=== PATIENT | male | born 1970 | race Caucasian/White ===

== ENCOUNTER 2016-09-29 15:30 | Observation (INO) | payer SELFPAY ==
[~2016-09-29] VITALS: Ht 177.8 cm; Wt 84.2 kg
--- NOTE | ~2016-09-29 | HP ---
PATIENT'S NAME: REYES MOSQUEDA [facility] AGE: 46 Y [address] ROOM: [place] [address] LOCATION: GICU ADMIT DATE: 09/29/2016 History & Physical DISCHARGE DATE: FAMILY PHYSICIAN: PHYSICIAN, UNKNOWN ATTENDING PHYSICIAN: SABA FLORENTINO DATE OF SERVICE: 09/29/2016 CHIEF COMPLAINT: Status post fall, traumatic brain injury, low back pain, left leg pain, and weakness. HISTORY OF PRESENT ILLNESS: The patient is a 46-year-old male patient, who had a fall earlier today, was diagnosed at [facility] to have a small right frontal traumatic subarachnoid hemorrhage. The patient has been complaining of low back pain and left leg pain and weakness for a few weeks. He was recently admitted to the hospital in [place] for treatment of low back pain. The patient had loss of consciousness after the fall today. He was seen at [place] [facility], where he was stabilized. He was complaining of headache and nausea as well as low back pain. I was contacted and reviewed the images. I recommended transferring the patient over for further investigations and observation. I met the patient on the Neuro Trauma Unit. He confirmed the history. He had no re-collection of the fall. He was complaining of left frontal/temporal headache. He denied visual disturbances. He reported weakness on his left foot as well as low back pain and left leg pain. He denied changes in his bladder and bowel function. He indicated that his daily activities and functioning are limited due to pain. He denied weight loss, fever, chills, and weakness on his hands. He also reported neck pain. PAST MEDICAL AND SURGICAL HISTORY: History of knee scopes, hypercholesterolemia. MEDICATIONS: Listed in the patient's chart. ALLERGIES: LISTED IN THE PATIENT'S CHART. REVIEW OF SYSTEMS: All points of review of systems were asked about. Pertinent positives were mentioned in the HPI. PATIENT'S NAME: REYES MOSQUEDA [facility] AGE: 46 Y [address] ROOM: [id number] [place] [address] LOCATION: GICU ADMIT DATE: 09/29/2016 History & Physical DISCHARGE DATE: FAMILY PHYSICIAN: PHYSICIAN, UNKNOWN ATTENDING PHYSICIAN: SABA FLORENTINO FAMILY HISTORY: Noncontributory to the patient's presentation. His sister has schizophrenia. SOCIAL HISTORY: Denies smoking and reported social alcohol drinking. PHYSICAL EXAMINATION: GENERAL: The patient was cooperative and pleasant. He was in discomfort due to pain. VITAL SIGNS: Systolic blood pressure was less than 150. HEENT: Head is atraumatic. Sclerae examination was normal. No obvious signs of external head trauma. Pupils were 3 mm and reactive. NECK: No tenderness to palpation. Neck range of motion was painless. No palpable masses. LYMPHATIC: No cervical lymphadenopathy. MOUTH AND THROAT: No mucosal lesions. RESPIRATORY: He was not in any respiratory distress. CARDIOVASCULAR: He has strong pulses on the upper and lower extremities. MUSCULOSKELETAL: He had painful range of motion in the left lower extremity. GAIT: He was mobilizing using a walker. He was in discomfort. He was able to do the toe and heel walking after encouragement. BACK: No obvious deformity. NEUROLOGIC: He was alert and oriented. Cranial nerves examination was grossly normal. Pupils were 3 mm and reactive. No evidence of pronator drift. Motor examination on the lower extremities was limited due to pain, but after encouragement, he was able to fully do the ankle dorsiflexion on the left side. EHL strength was 5/5 bilaterally. Ankle dorsiflexion was 5/5 bilaterally. Sensory examination was unremarkable. No evidence of clonus. INVESTIGATIONS: 1. Noncontrast CT head done in [place] which I personally reviewed. It showed no evidence of fractures. It showed evidence of a small right frontal traumatic subarachnoid hemorrhage with no mass effect. Basal cisterns are patent. 2. Cervical spine CT scan done in [place], which I personally reviewed. It showed evidence of [id number] multilevel degenerative joint disease. No evidence of fractures. 3. Lumbar spine MRI done here at [facility]. It showed evidence of mild degenerative joint disease with no evidence of disc herniation or stenoses. IMPRESSION: A 46-year-old male patient, who has been complaining of low back pain and left leg pain and weakness for a few weeks had a fall earlier today that resulted in mild traumatic brain injury with right frontal traumatic subarachnoid PATIENT'S NAME: REYES MOSQUEDA [facility] AGE: 46 Y [address] ROOM: [place] [address] LOCATION: GICU ADMIT DATE: 09/29/2016 History & Physical DISCHARGE DATE: FAMILY PHYSICIAN: PHYSICIAN, UNKNOWN ATTENDING PHYSICIAN: SABA FLORENTINO. The patient's neurological examination is reassuring. He was investigated with lumbar spine MRI at our hospital, which was negative for stenosis and disc herniation and only showed mild degenerative joint disease. PLAN: 1. Repeat noncontrast CT head on September 30, 2016. 2. Physiotherapy, Occupational Therapy to mobilize. 3. Outpatient physical therapy. 4. Pain Service consultation ( Dr Rush). 5. Pain control. I discussed the imaging findings with the patient and indicated that he sustained mild traumatic brain injury. I also discussed the lumbar spine MRI finding with him. I then discussed my plan with him. He asked appropriate questions and those were answered to his satisfaction. It was a pleasure taking care of this patient and thanks for having us involved. MD MILENA BARKER/sarahl /[id number] CC: Dr. Marcio Seay [place], [place] López Rush MD D: [id number] T: [id number] HISTORY & PHYSICAL
--- NOTE | 2016-09-29 16:06 | NUR ---
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 He was a patient in the [facility] last week for back pain and leg weakness, and was dismissed on steroids and hydrocodone. Today he was rushing back through his front door, "to answer the call of nature", when he tripped on his flip flop shoes, falling forward into his house. He woke up in the recliner and does not know how he got there. He was brought to room 6216 per cart with ambulance drivers from [facility]. A/O X 3. Hematoma, lump, bruise to L) forehead. Complaining of a headache. Moves all extremities to command with a dull sensation to left leg and foot. Moved himself to the bed.
[2016-09-29] MEDS ORDERED: NORCO 5-325 TA1 EACH PO (16:57)
[2016-09-29] MEDS ORDERED: ZOFRAN4 MG PO (16:58)
[2016-09-29] MEDS ORDERED: DELTASONE10 MG PO (17:02)
[2016-09-29] MEDS ORDERED: FISH OIL300 MG PO (17:02)
[2016-09-29] MEDS ORDERED: VITAMIN B-12100 MCG PO (17:03)
[2016-09-29] MEDS ORDERED: THERAGRAN-M1 TAB PO (17:03)
[2016-09-29] MEDS ORDERED: REQUIP1 MG PO (17:47)
[2016-09-29] MEDS ORDERED: MEVACOR20 MG PO (17:48)
--- NOTE | 2016-09-30 05:29 | NUR ---
Significant Event: AAOx3, C/O dullness to L) outer thigh extending to L) outer foot. PERRLA 3mm brisk. Equal moderate strength throughout. Systolic 100-130's, HR 40-60's, 2+ pulses, absent edema. L.S. clear throughout on RA. B.S. active. Urinates per urinal. Up 1PA with walker/GB some rigidity with LLE movement, stable gait. PIV L) hand SL'd. C/O pain to lower lumbar back gave Dilaudid 0.2 IVP last at 0350 with Flexeril 10mg PO. Follow up: Neuro checks, CT head this AM at 0400. Follow up outatient with Dr. Rush for pain control.
[2016-09-30] MEDS ORDERED: ULTRAM50 MG PO (09:49)
[2016-09-30] MEDS ORDERED: FLEXERIL10 MG PO (09:51)
[2016-09-30] MEDS ORDERED: TYLENOL325 MG PO (09:51)
--- NOTE | 2016-09-30 11:53 | NUR ---
Significant Event:A/O X 3. PERRLA, 2 brisk. Dullness in L) leg and foot "remain the same." Ambulates in the hill with gait belt and walker with PT. OT here for therapy. Sinus manjinder. O2 > 90% on room air. Strong cough. Eating large meals without nausea or vomiting. NO BM today, passing flatus, last BM was 09/29/16. SL patent, no blood return. Voiding without problems. Bathed self. Declines shampoo and shave. Pain improved, but not totally resolved for very long with Dilaudid IV, PO Ultram and PO Flexeril. Follow up:Discussed dismissal plans. Patient reports he already has started the process of setting up outpatient therapy in [place]. He reports he understands that Dr Rush's office is not open today and he will have to call to make his own appointment to follow up with Dr Rush.
== END 2016-09-30 19:16 | disposition disaster alternative care site (69) ==
LOC: UNDOADMIN 16:01 → GICU 16:01
PROVIDERS: ADMIT Neurological Surgery
DX: S06.6X9A Traumatic subarachnoid hemorrhage with loss of consciousness of unspecified duration, initial encounter (principal); M47.812 Spondylosis without myelopathy or radiculopathy, cervical region; M47.816 Spondylosis without myelopathy or radiculopathy, lumbar region; E78.00 Pure hypercholesterolemia, unspecified; Z98.890 Other specified postprocedural states; W19.XXXA Unspecified fall, initial encounter
CPT/HCPCS: J1170; J2405